=== PATIENT | male | born 1975 | race Caucasian/White ===

== ENCOUNTER 2022-05-26 08:10 | Day surgery (SDC) | payer MEDICAID ==
[~2022-05-26] VITALS: Ht 172.7 cm; Wt 72.6 kg
[2022-05-26] MEDS ORDERED: LR 1,000 ML IV SCH (11:45)
[2022-05-26] MEDS ORDERED: MEPERIDINE HCL/PF 25 MG/ML DISP.SYRIN IVP PRN (11:45)
[2022-05-26] MEDS ORDERED: METOCLOPRAMIDE HCL 10 MG/2 ML VIAL IVP PRN (11:45)
[2022-05-26] MEDS ORDERED: HYDROmorphone 1 MG/ML INJ. CARTRIDGE IVP PRN ×2 (11:45)
[2022-05-26] MEDS ORDERED: DEXAMETHASONE SOD PHOSPHATE 4 MG/ML VIAL ONE (12:35)
[2022-05-26] MEDS ORDERED: PROPOFOL 200MG/ 20ML VIAL (DIPRIVAN) IV ONE (12:35)
[2022-05-26] MEDS ORDERED: WATER FOR IRRIGATION,STERILE 1,000 ML IRRIG.SOLN IR ONE (12:35)
[2022-05-26] MEDS ORDERED: KETOROLAC TROMETHAMINE 30 MG VIAL ONE (12:35)
[2022-05-26] MEDS ORDERED: fentaNYL CITRATE/PF 100 MCG/2 ML AMP ONE (12:35)
[2022-05-26] MEDS ORDERED: BACITRACIN 1 GM OINT TP ONE (12:35)
[2022-05-26] MEDS ORDERED: EPINEPHrine HCL 1 MG/ML VIAL ONE (12:35)
[2022-05-26] MEDS ORDERED: LIDOCAINE 2%, 20 ML MDV ONE (12:35)
[2022-05-26] MEDS ORDERED: LR 1,000 ML IV.SOLN IV ONE (12:35)
[2022-05-26] MEDS ORDERED: MIDAZOLAM HCL 5 MG/ML VIAL (VERSED) IV ONE (12:35)
[2022-05-26] MEDS ORDERED: ONDANSETRON HCL 4 MG/2 ML VIAL ONE (12:35)
[2022-05-26] MEDS ORDERED: NS 1000 ML IV.SOLN IV ONE (12:35)
[2022-05-26] MEDS ORDERED: SUGAMMADEX SODIUM 200 MG/2 ML VIAL IV ONE (12:35)
[2022-05-26] MEDS ORDERED: ROCURONIUM BROMIDE 10 MG/ML (ZEMURON) ONE (12:35)
[2022-05-26] MEDS ORDERED: DESFLURANE 15 MIN GAS INH ONE (12:35)
[2022-05-26 15:43] VITALS: BP_SYST 112
== END 2022-05-26 16:02 | disposition home or self-care (01) ==
LOC: SDS 08:10 → SMU 08:11 → SDS 16:02
PROVIDERS: ATTEND Otolaryngology
DX: R49.0 Dysphonia (principal); D38.0 Neoplasm of uncertain behavior of larynx; K21.9 Gastro-esophageal reflux disease without esophagitis; B36.8 Other specified superficial mycoses; H90.3 Sensorineural hearing loss, bilateral; Z79.899 Other long term (current) drug therapy
CPT/HCPCS: 87081; 31541; 36415; 88305; 87426; J3490; J1100; J0171; J1885; J2001; J2250; J2405; J2704; J3010; J7120; J7030; 88304